=== PATIENT | male | born 1990 | race Caucasian/White ===

== ENCOUNTER 2017-02-10 17:22 | Emergency (ER) | payer OTHER, MEDICAID ==
[~2017-02-10 17:22] MED LIST: NO MEDICATIONS; NORCO 10-325 TA1 TAB PO; VIBRAMYCIN100 M1 PO
== END 2017-02-10 19:07 | disposition home or self-care (01) ==
LOC: CED 17:22
DX: T40.1X1A Poisoning by heroin, accidental (unintentional), initial encounter (principal); F19.10 Other psychoactive substance abuse, uncomplicated; J45.909 Unspecified asthma, uncomplicated; F17.200 Nicotine dependence, unspecified, uncomplicated; Z86.19 Personal history of other infectious and parasitic diseases
CPT/HCPCS: 99282